=== PATIENT | female | born 2000 | race Caucasian/White ===

== ENCOUNTER 2023-01-02 17:16 | Emergency (ER) | payer OTHER ==
[2023-01-02 17:29] VITALS: BP 116/77; PULSE 82; RESP 18; TEMP 98; BMI 34.7
[2023-01-02] MEDS ORDERED: CYCLOBENZAPRINE HCL 10 MG TABLET (FP) PO ONE (17:47)
[2023-01-02] MEDS ORDERED: IBUPROFEN 600 MG TABLET (FP) PO ONE ×2 (17:47→17:58)
[2023-01-02] MEDS ORDERED: CYCLOBENZAPRINE HCL 10 MG TABLET (FP) ONE (17:58)
== END 2023-01-02 19:12 | disposition home or self-care (01) ==
LOC: JER 17:16
DX: S46.911A Strain of unspecified muscle, fascia and tendon at shoulder and upper arm level, right arm, initial encounter (principal); M25.531 Pain in right wrist; M79.601 Pain in right arm; X50.1XXA Overexertion from prolonged static or awkward postures, initial encounter; W10.8XXA Fall (on) (from) other stairs and steps, initial encounter
CPT/HCPCS: 73060-TC-RT-FY; 73090-TC-RT-FY; 73110-TC-RT-FY; 99283-25

== ENCOUNTER 2023-06-30 19:12 | Emergency (ER) | payer OTHER ==
[2023-06-30 19:25] VITALS: BP 125/60; PULSE 90; RESP 18; TEMP 98.1; BMI 35.2
[2023-06-30] MEDS ORDERED: ACETAMINOPHEN 500 MG TABLET (FP) PO ONE (20:34)
[2023-06-30] MEDS ORDERED: ACETAMINOPHEN 325 MG TABLET (FP) ONE ×2 (20:44→20:47)
== END 2023-06-30 23:44 | disposition home or self-care (01) ==
LOC: JER 19:12
DX: O26.891 Other specified pregnancy related conditions, first trimester (principal); M54.50 Low back pain, unspecified; R10.2 Pelvic and perineal pain; O30.001 Twin pregnancy, unspecified number of placenta and unspecified number of amniotic sacs, first trimester; W10.8XXA Fall (on) (from) other stairs and steps, initial encounter; Y93.01 Activity, walking, marching and hiking; Z3A.01 Less than 8 weeks gestation of pregnancy
CPT/HCPCS: 36415; 76817-TC; 84702; 99284-25

== ENCOUNTER 2023-07-04 18:16 | Emergency (ER) | payer OTHER ==
[2023-07-04 18:37] VITALS: BP 119/66; PULSE 70; RESP 17; TEMP 98.2; BMI 35.2
[2023-07-04 19:27] LABS: EOS % 1.7 % (0-4.5); HEMATOCRIT 33.4 % (32.4-45.2); HEMOGLOBIN 10.8 GM/dL (10.7-15.3); LYMPH % 28.1 % (8-40); MCH 23.8 pg (25.7-33.7); MCHC 32.5 g/dl (32.0-36.0); MEAN CELL VOLUME 73.4 fl (80-96); MEAN PLT VOLUME 8.7 fl (7.5-11.1); MONO % 8.2 % (3.8-10.2); PLATELET COUNT 240 10^3/uL (134-434); RBC 4.55 M/mm3 (3.60-5.2); RDW 20.6 % (11.6-15.6)
[2023-07-04 19:32] LABS: EPI CELLS 27 /uL (0-25.1); HYALINE CASTS 1 /uL (0-3.1); PH,URINE 5.5 (5.0-8.0); URINE APPEARANCE TURBID; URINE BACTERIA 765 /uL (0-1359); URINE BILIRUBIN NEGATIVE (NEGATIVE); URINE COLOR YELLOW; URINE GLUCOSE (UA) NEGATIVE (NEGATIVE); URINE KETONE TRACE (NEGATIVE); URINE LEUK ESTERASE 2+ (NEGATIVE); URINE NITRITE NEGATIVE (NEGATIVE); URINE PROTEIN NEGATIVE (NEGATIVE); URINE RBC 10 /uL (0-23.9); URINE UROBILINOGEN 0.2 mg/dL (0.2-1.0); URINE WBC 196 /uL (0-25.8)
[2023-07-04 19:49] LABS: POTASSIUM 3.7 mmol/L (3.5-5.1)
[2023-07-04 19:51] LABS: ALBUMIN 3.3 g/dl (3.4-5.0); BLOOD UREA NITROGEN 13.9 mg/dL (7-18); CALCIUM 8.6 mg/dL (8.5-10.1)
[2023-07-04] MEDS ORDERED: NITROFURANTOIN MONOHYD/M-CRYST 100 MG CAPSULE PO ONE (19:51)
[2023-07-04] MEDS ORDERED: NITROFURANTOIN MACROCRYSTAL 50 MG CAPSULE (FP) ONE (19:53)
[2023-07-04 19:54] LABS: CREATININE 0.8 mg/dL (0.55-1.3)
[2023-07-04 19:56] LABS: BILIRUBIN,TOTAL 0.2 mg/dL (0.2-1); TOT PROT 6.8 g/dl (6.4-8.2)
== END 2023-07-04 21:50 | disposition home or self-care (01) ==
LOC: JER 18:16
DX: O26.891 Other specified pregnancy related conditions, first trimester (principal); R10.2 Pelvic and perineal pain; R10.30 Lower abdominal pain, unspecified; O23.41 Unspecified infection of urinary tract in pregnancy, first trimester; Z3A.01 Less than 8 weeks gestation of pregnancy
CPT/HCPCS: 76817-TC; 80053; 81003; 84702; 85025; 86850; 86900; 86901; 87086; 99284-25